=== PATIENT | female | born 1990 | race Hispanic/Latino ===

== ENCOUNTER 2019-12-04 18:09 | Emergency (ER) | payer OTHER ==
[2019-12-04 18:39] LABS: Absolute Lymphocytes (CBC) 1.8 K/uL (0.7-4.9); Basophils % 0.6 % (0-1.3); Hematocrit 39.1 % (36.0-45.0); Lymphocytes % 17.9 % (15.3-44.8); MPV 9.5 fL (7.6-11.3); RBC Red Blood Cell Count 4.79 M/uL (3.86-4.86)
[2019-12-04 18:53] LABS: Potassium 3.5 mmol/L (3.5-5.1)
--- NOTE | 2019-12-04 20:05 | RAD REPORT ---
EXAM DESCRIPTION: US - Transvaginal OB - 12/04/2019 7:17 pm CLINICAL HISTORY: with pelvic pain and vaginal bleeding COMPARISON: None. FINDINGS: The uterus measures 12 x 6 x 6 centimeters. The endometrial stripe is thickened within me asuring 26 millimeters. . A gestational sac is not seen. Right and left ovary appear normal. . An adnexal mass is not noted. No significant free fluid is seen. IMPRESSION: Thickened endometrium without visualization of a gestational sac. These findings may rep resent an incomplete . This should be correlated clinically. An early IUP in which the gestational sac is not seen as well as ectopic can also result in this appearance. If clinically indicated follow up ultrasound in 1 week with serial beta HCG levels may be helpful
--- NOTE | 2019-12-04 20:18 | EDPHYS ---
Physician Documentation [facility] Name: Apple Monzon Age: 29 yrs Sex: Female : 1990 Arrival Date: 12/04/2019 Time: 18:10 Bed 27 Private MD: ED Physician Suhail Dennis HPI: 12/03 20:31 This 29 yrs old Female presents to ER via EMS with complaints of Vaginal kb Bleeding, + Preg <12wks. 20:31 The patient presents to the emergency department with abdominal pain, described as kb crampy, vaginal bleeding, that is moderate. 20:40 course: care: at a clinic. Previous pregnancies: in previous kb pregnancies patient has had. Associated signs and symptoms: Pertinent positives: abdominal pain, vaginal bleeding. The patient has not experienced similar symptoms in the past. Pt reports she had an US at [facility] yesterday and there was no heartbeat. Had an injection today at [facility] to help expel contents. Came in due to abd cramping and vaginal bleeding. . 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 - Social history:: Smoking status: Patient denies any tobacco usage or history of. Patient uses. ROS: 20:40 Constitutional: Negative for fever, chills, and weight loss, Cardiovascular: Negative kb for chest pain, palpitations, and edema, Respiratory: Negative for shortness of breath, cough, wheezing, and pleuritic chest pain, Back: Negative for injury and pain, MS/Extremity: Negative for injury and deformity, Skin: Negative for injury, rash, and discoloration, Neuro: Negative for headache, weakness, numbness, tingling, and seizure. 20:40 Abdomen/GI: Positive for abdominal cramps. 20:40 : Positive for vaginal bleeding. Exam: 20:40 Constitutional: This is a well developed, well nourished patient who is awake, alert, kb and in no acute distress. Head/Face: Normocephalic, atraumatic. Chest/axilla: Normal chest wall appearance and motion. Nontender with no deformity. No lesions are appreciated. Cardiovascular: Regular rate and rhythm with a normal S1 and S2. No gallops, murmurs, or rubs. Normal PMI, no JVD. No pulse deficits. Respiratory: Lungs have equal breath sounds bilaterally, clear to auscultation and percussion. No rales, rhonchi or wheezes noted. No increased work of breathing, no retractions or nasal flaring. Abdomen/GI: Soft, non-tender, with normal bowel sounds. No distension or tympany. No guarding or rebound. No evidence of tenderness throughout. Skin: Warm, dry with normal turgor. Normal color with no rashes, no lesions, and no evidence of cellulitis. MS/ Extremity: Pulses equal, no cyanosis. Neurovascular intact. Full, normal range of motion. Neuro: Awake and alert, GCS 15, oriented to person, place, time, and situation. Cranial nerves II-XII grossly intact. Motor strength 5/5 in all extremities. Sensory grossly intact. Cerebellar exam normal. Normal gait. Vital Signs: 18:11 BP 100 / 85; Pulse 104; Resp 20 S; Temp 99.7(O); Pulse Ox 96% on R/A; Weight 63.05 kg ca1 (R); Height 5 ft. 1 in. (154.94 cm) (R); Pain 6/10; 18:54 BP 104 / 74; Pulse 94; Resp 17 S; Pulse Ox 96% on R/A; ca1 19:41 BP 103 / 77; Pulse 102; Resp 18; Pulse Ox 97% on R/A; mg2 20:27 BP 102 / 70; Pulse 98; Resp 18; Temp 98(O); Pulse Ox 100% on R/A; mg2 18:11 Body Mass Index 26.26 (63.05 kg, 154.94 cm) ca1 MDM: 18:13 Patient medically screened. kb 20:15 Data reviewed: vital signs, nurses notes. Data interpreted: Pulse oximetry: on room air kb is 97 %. Interpretation: normal. Counseling: I had a detailed discussion with the patient and/or guardian regarding: the historical points, exam findings, and any diagnostic results supporting the discharge/admit diagnosis, lab results, radiology results, the need for outpatient follow up, an OB/Gyne specialist, to return to the emergency department if symptoms worsen or persist or if there are any questions or concerns that arise at home. ED course: Pt passed large clot, nurse reports it appeared to be products of conception, prior to US. Pt reports bleeding and pain has gotten better since passing that clot. No products seen on US. Pt to follow up with OB on Saturday. 12/03 18:20 Order name: Quantitative Hcg; Complete Time: 18:55 kb 12/03 18:20 Order name: Abo/rh Typing kb 12/03 18:20 Order name: Basic Metabolic Panel; Complete Time: 18:55 kb 12/03 18:20 Order name: CBC with Diff; Complete Time: 18:43 kb 12/03 18:20 Order name: US Transvaginal Ob; Complete Time: 20:14 kb 12/03 18:20 Order name: IV Saline Lock; Complete Time: 18:27 kb 12/03 18:20 Order name: Labs collected and sent; Complete Time: 18:27 kb 12/03 18:20 Order name: NPO; Complete Time: 18:27 kb Administered Medications: No medications were administered Disposition: 12/04/19 20:18 Discharged to Home. Impression: Complete or unspecified spontaneous without complication. - Condition is Stable. - Discharge Instructions: Miscarriage, [id number]. - Medication Reconciliation Form, Thank You Letter, Antibiotic Education, Prescription Opioid Use form. - Follow up: Emergency Department; When: As needed; Reason: Worsening of condition. Follow up: Private Physician; When: 2 - 3 days; Reason: Recheck today's complaints, Continuance of care, Re-evaluation by your physician. Addendum: 12/06/2019 13:59 Co-signature as Attending Physician, Suhail Dennis MD I agree with the assessment and k dr plan of care. Signatures: Dispatcher [employer] Luci Alba, SALES TEACHER-C SALES TEACHER-Suhail Cutler MD MD [facility] Wander Beckett RN RN mg2 Sun Esteban RN RN ca1 Corrections: (The following items were deleted from the chart) 12/03 20:35 20:18 12/04/2019 20:18 Discharged to Home. Impression: Complete or unspecified mg2 spontaneous without complication. Condition is Stable. Forms are Medication Reconciliation Form, Thank You Letter, Antibiotic Education, Prescription Opioid Use. Follow up: Emergency Department; When: As needed; Reason: Worsening of condition. Follow up: Private Physician; When: 2 - 3 days; Reason: Recheck today's complaints, Continuance of care, Re-evaluation by your physician. kb
--- NOTE | 2019-12-04 20:18 | ER ---
Nurse's Notes [facility] Name: Apple Monzon Age: 29 yrs Sex: Female : 1990 Arrival Date: 12/04/2019 Time: 18:10 Bed 27 Private MD: Diagnosis: Complete or unspecified spontaneous without complication Presentation: 12/03 18:11 Chief complaint: EMS states: Pt 2 months , went to [place] yesterday and said ca1 she had miscarriage. Went to back to [place] today was given a shot and sent home. This afternoon, she ws bleeding a lot and complains or crampy abdominal pains. They called the doctor in [place] and was told come to the ER to assess blood loss. Coronavirus screen: Patient denies fever greater than 100.4F, cough, shortness of breath, or difficulty breathing. Proceed with normal triage process. Ebola Screen: Patient negative for fever greater than or equal to 101.5 degrees Fahrenheit, and additional compatible Ebola Virus Disease symptoms Patient denies exposure to infectious person. Patient denies travel to an Ebola-affected area in the 21 days before illness onset. No symptoms or risks identified at this time. Initial Sepsis Screen: Does the patient meet any 2 criteria? No. Patient's initial sepsis screen is negative. Does the patient have a suspected source of infection? No. Patient's initial sepsis screen is negative. Risk Assessment: Do you want to hurt yourself or someone else? Patient reports no desire to harm self or others. Onset of symptoms was December 04, 2019. Care prior to arrival: Glucose check: 172. 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 - Social history:: Smoking status: Patient denies any tobacco usage or history of. Patient uses. Screenin:30 Abuse screen: Denies threats or abuse. Denies injuries from another. Nutritional ca1 screening: No deficits noted. Tuberculosis screening: No symptoms or risk factors identified. Fall Risk IV access (20 points). Assessment: 18:30 General: Appears in no apparent distress. comfortable, Behavior is calm, cooperative, ca1 appropriate for age. Pain: Complains of pain in suprapubic area, right lower quadrant and left lower quadrant Pain currently is 6 out of 10 on a pain scale. Neuro: Level of Consciousness is awake, alert, obeys commands, Oriented to person, place, time, situation, Appropriate for age. Cardiovascular: Capillary refill < 3 seconds Patient's skin is warm and dry. Respiratory: Airway is patent Respiratory effort is even, unlabored, Respiratory pattern is regular, symmetrical, Breath sounds are clear bilaterally. GI: Abdomen is round non-distended, Bowel sounds present X 4 quads. Abd is soft X 4 quads Abdomen is tender to palpation in suprapubic area, right lower quadrant and left lower quadrant. : Reports vaginal bleeding that is bright red, with clots. EENT: No signs and/or symptoms were reported regarding the EENT system. Derm: Skin is intact, is healthy with good turgor, Skin is pink, warm \T\ dry. Musculoskeletal: Circulation, motion, and sensation intact. Capillary refill < 3 seconds. 18:49 Reassessment: US at bedside. ca1 19:55 Reassessment: patient passed large blood clot in ED as endorsed by the morning shift. mg2 moderate amount of blood passed transvaginal ultrasound. 20:27 Reassessment: Patient appears in no apparent distress at this time. mg2 Vital Signs: 18:11 BP 100 / 85; Pulse 104; Resp 20 S; Temp 99.7(O); Pulse Ox 96% on R/A; Weight 63.05 kg ca1 (R); Height 5 ft. 1 in. (154.94 cm) (R); Pain 6/10; 18:54 BP 104 / 74; Pulse 94; Resp 17 S; Pulse Ox 96% on R/A; ca1 19:41 BP 103 / 77; Pulse 102; Resp 18; Pulse Ox 97% on R/A; mg2 20:27 BP 102 / 70; Pulse 98; Resp 18; Temp 98(O); Pulse Ox 100% on R/A; mg2 18:11 Body Mass Index 26.26 (63.05 kg, 154.94 cm) ca1 ED Course: 18:10 Patient arrived in ED. ca1 18:13 Luci Wick FNP-C is [facility]. kb 18:13 Suhail Dennis MD is Attending Physician. kb 18:20 Triage completed. ca1 18:20 Arm band placed on right wrist. ca1 18:26 Sun Esteban RN is Primary Nurse. ca1 18:28 Initial lab(s) drawn, by me, sent to lab. Inserted saline lock: 20 gauge in right ca1 antecubital area, using aseptic technique. Blood collected. 18:30 Patient has correct armband on for positive identification. Bed in low position. Call ca1 light in reach. Side rails up X2. Pulse ox on. NIBP on. Warm blanket given. 18:30 No provider procedures requiring assistance completed. ca1 18:49 Repeat lab(s) drawn. by me, sent to lab. ca1 19:17 US Transvaginal Ob In Process Unspecified. EDMS 20:27 IV discontinued, intact, bleeding controlled, No redness/swelling at site. Pressure mg2 dressing applied. Administered Medications: No medications were administered Intake: 18:00 IV: 1000ml; Total: 1000ml. vc Outcome: 20:18 Discharge ordered by . kb 20:27 Discharged to home ambulatory. mg2 20:27 Condition: good 20:27 Discharge instructions given to patient, Instructed on discharge instructions, follow up and referral plans. Demonstrated understanding of instructions, follow-up care. 20:35 Patient left the ED. mg2 Signatures: Dispatcher [employer] EDMS Luci Wick FNP-C FNP-Wander Servin RN RN mg2 Sun Esteban RN RN ca1 Gwen Alegria RN RN vc
[2019-12-04 21:14] VITALS: BP 102/70; TEMP 98; O2SAT 100
== END 2019-12-04 20:35 | disposition home or self-care (01) ==
LOC: ER 18:09
DX: O03.9 Complete or unspecified spontaneous abortion without complication (principal); Z3A.08 8 weeks gestation of pregnancy
CPT/HCPCS: 36415; 76817; 80048; 84702; 85025; 86900; 86901; 99284